=== PATIENT | female | born 1970 | race Caucasian/White ===

== ENCOUNTER → 2020-04-09 | Outpatient (CLI) | payer OTHER ==
[~2020-04-09] MED LIST: ARIP30TA4 PO; CLON-364 PO; VENL75CA6 PO; ZOLP10TA PO; [UNRECOGNIZED DRUG - OTHER] PO
[2020-04-09 16:31] LABS: INTERNATIONAL NORMALIZED RATIO 0.94 (0.93-1.1)
[2020-04-09 16:32] LABS: BASOPHILS # (AUTO) 0.03 x10^3/uL (0-0.1); BASOPHILS % (AUTO) 0 % (0-1); EOSINOPHILS # (AUTO) 0.01 x10^3/uL (0-0.4); EOSINOPHILS % (AUTO) 0 % (1-7); LYMPHOCYTES % (AUTO) 34 % (22-44); MD NO; MEAN CORPUSCULAR HEMOGLOBIN 31.6 pg (27.0-34.8); MEAN PLATELET VOLUME 9.3 fL (7.4-10.4); MONOCYTES # (AUTO) 0.47 x10^3/uL (0.2-0.8); MONOCYTES % (AUTO) 6 % (2-9); NEUTROPHILS # (AUTO) 4.84 x10^3/uL (1.8-6.8); NEUTROPHILS % (AUTO) 60 % (42-75); PLATELET COUNT 200 x10^3/uL (130-400); RED BLOOD COUNT 4.62 x10^6/uL (3.82-5.3); RED CELL DISTRIBUTION WIDTH 12.4 % (9.6-15.2)
[2020-04-09 16:33] LABS: ANION GAP 5 mmol/L (5-15); CALCIUM 9.4 mg/dL (8.5-10.1); CHLORIDE 105 mmol/L (98-107); CREATININE 0.92 mg/dL (0.55-1.02)
== END | disposition home or self-care (01) ==
LOC: STAR 15:09
PROVIDERS: ATTEND Neurological Surgery
DX: Z01.818 Encounter for other preprocedural examination (principal); M51.36 Other intervertebral disc degeneration, lumbar region
CPT/HCPCS: 36415; 71046; 80048; 85025; 85610; 85730; 93005

== ENCOUNTER 2020-04-15 08:29 | Inpatient (IN) | payer OTHER ==
[~2020-04-15] VITALS: Ht 167.6 cm; Wt 82.9 kg
[~2020-04-15 08:29] MED LIST changes: +BACITRACIN 50,000 UNIT ONE; +BUPIVACAINE/PF-EPI 0.5% 1:200K ONE; +THROMBIN 5,000 UNIT VIAL TP ONE
[2020-04-15] MEDS ORDERED: CHLORHEXIDINE 15 ML UDC ONE (10:57)
[2020-04-15] MEDS ORDERED: GABAPENTIN 300 MG CAPSULE ONE (10:58)
[2020-04-15] MEDS ORDERED: SCOPOLAMINE 1MG PATCH TD ONE (10:58)
[2020-04-15] MEDS ORDERED: GABAPENTIN 300 MG CAPSULE PO ONE (11:00)
[2020-04-15] MEDS ORDERED: CHLORHEXIDINE 15 ML UDC MM ONE (11:00)
[2020-04-15] MEDS ORDERED: SCOPOLAMINE 1MG PATCH TD SCH (11:00)
[2020-04-15] MEDS ORDERED: LACTATED RINGERS 1,000 ML IV SCH (11:01)
[2020-04-15] MEDS ORDERED: FENTANYL PF 100 MCG/2ML ONE ×5 (13:20→16:40)
[2020-04-15] MEDS ORDERED: MIDAZOLAM 1 MG/ML, 2ML ONE (13:20)
[2020-04-15] MEDS ORDERED: ROCURONIUM 10MG/ML,5ML ONE (13:22)
[2020-04-15] MEDS ORDERED: PROPOFOL 10 MG/ML, 20ML ONE (13:22)
[2020-04-15] MEDS ORDERED: DEXAMETHASONE 4 MG/ML, 1ML ONE (13:22)
[2020-04-15] MEDS ORDERED: CEFAZOLIN 1,000 MG ONE (13:22)
[2020-04-15] MEDS ORDERED: NEOSTIGMINE 1 MG/ML, 10ML ONE (13:22)
[2020-04-15] MEDS ORDERED: ONDANSETRON 2MG/ML, 2ML ONE (13:22)
[2020-04-15] MEDS ORDERED: GLYCOPYRROLATE 0.2MG/1ML, 5ML ONE (13:22)
[2020-04-15] MEDS ORDERED: PROPOFOL 50 ML ONE (13:22)
[2020-04-15] MEDS ORDERED: FENTANYL PF 100 MCG/2ML IVPush ONE (14:00)
[2020-04-15] MEDS ORDERED: HALOPERIDOL 5 MG/ML IV PRN (15:30)
[2020-04-15] MEDS ORDERED: hydrALAzine 20 MG/ML, 1ML IV PRN (15:30)
[2020-04-15] MEDS ORDERED: MEPERIDINE/PF 25MG/0.5ML IVPush PRN (15:30)
[2020-04-15] MEDS ORDERED: LABETALOL 5MG/ML, 20ML IV PRN ×2 (15:30→18:30)
[2020-04-15] MEDS ORDERED: morphine SULFATE 10 MG/ML, 1ML IVPush PRN (15:30)
[2020-04-15] MEDS ORDERED: METHOCARBAMOL 1,000 MG in DEXTROSE 5% 100 ML IV PRN (15:30)
[2020-04-15] MEDS ORDERED: DIAZEPAM 5 MG/ML, 2ML IVPush PRN (15:30)
[2020-04-15] MEDS ORDERED: PROMETHAZINE 25 MG/ML, 1ML IVPush PRN (15:30)
[2020-04-15] MEDS ORDERED: OXYcodone 5 MG/5 ML ORAL.SOL UDC ONE ×2 (16:40→17:10)
[2020-04-15] MEDS: FENTANYL PF 100 MCG/2ML IV PRN ×4 (16:43→17:05)
[2020-04-15] MEDS: OXYcodone 5 MG/5 ML ORAL.SOL UDC PO PRN ×2 (16:44→17:10)
[2020-04-15] MEDS ORDERED: HYDROmorphone 1 MG/ML, 1ML INJ ONE (17:22)
[2020-04-15] MEDS: HYDROmorphone 1 MG/ML, 1ML INJ IVPush PRN ×3 (17:24→17:35)
[2020-04-15 18:15] VITALS: BP 120/81
[2020-04-15] MEDS ORDERED: BISACODYL 10 MG SUPP PR PRN (18:30)
[2020-04-15] MEDS ORDERED: DIPHENHYDRAMINE 25 MG CAPSULE PO PRN (18:30)
[2020-04-15] MEDS ORDERED: MAGNESIUM HYDROXIDE 8%, 30ML UDC PO PRN (18:30)
[2020-04-15] MEDS ORDERED: DIPHENHYDRAMINE 50 MG/ML, 1ML IVPush PRN (18:30)
[2020-04-15] MEDS ORDERED: PROMETHAZINE 25 MG/ML, 1ML IM PRN (18:30)
[2020-04-15] MEDS ORDERED: DIPHENHYDRAMINE 50 MG/ML, 1ML IM PRN (18:30)
[2020-04-15] MEDS ORDERED: ONDANSETRON 2MG/ML, 2ML IV PRN (18:30)
[2020-04-15] MEDS: HYDROmorphone 2 MG/ML, 1ML IVPush PRN ×2 (20:01→23:16)
[2020-04-15] MEDS: OXYcodone IR 5MG TABLET PO PRN (21:41)
[2020-04-15] MEDS: CEFAZOLIN PMX 1GM/50ML 50 ML IVPB SCH (22:59)
[2020-04-15] MEDS: NS + 20MEQ KCL 1,000 ML IV SCH (23:00)
[2020-04-16 00:07] VITALS: BP 101/65
[2020-04-16] MEDS: METHOCARBAMOL 750 MG in DEXTROSE 5% 100 ML IV SCH ×2 (00:52→08:12)
[2020-04-16 03:47] VITALS: BP 99/67
[2020-04-16] MEDS: OXYcodone IR 5MG TABLET PO PRN ×3 (03:53→12:03)
[2020-04-16] MEDS: HYDROmorphone 2 MG/ML, 1ML IVPush PRN (05:10)
[2020-04-16] MEDS: CEFAZOLIN PMX 1GM/50ML 50 ML IVPB SCH (06:25)
[2020-04-16 06:47] VITALS: BP 95/66
[2020-04-16] MEDS: NS + 20MEQ KCL 1,000 ML IV SCH (08:10)
[2020-04-16] MEDS ORDERED: SENNA/DOCUSATE TABLET PO SCH (09:00)
[2020-04-16] MEDS ORDERED: KETOROLAC 30 MG/1 ML IVPush ONE (11:00)
[2020-04-16] MEDS ORDERED: OXYC-307 PO (11:43)
[2020-04-16] MEDS ORDERED: METH750T87 PO (11:44)
[2020-04-16 11:51] VITALS: BP 101/70
[2020-04-18] MEDS ORDERED: METHOCARBAMOL 750 MG TABLET PO SCH (01:30)
== END 2020-04-16 12:39 | disposition home or self-care (01) | DRG 42 ==
LOC: ORIP 09:52 → 3N 17:54 → DCLOUNGE 04-16 12:20
PROVIDERS: ADMIT Neurological Surgery; ATTEND Neurological Surgery
PROC: 01NB0ZZ Release Lumbar Nerve, Open Approach (ICD-10-PCS; 2020-04-15)
PROC: 01NR0ZZ Release Sacral Nerve, Open Approach (ICD-10-PCS; principal; 2020-04-15 12:00)
DX: M54.18 Radiculopathy, sacral and sacrococcygeal region (principal)
CPT/HCPCS: 72100; 95938; 95941; G0378; J0690; J1100; J1170; J1885; J2250; J2405; J2704; J2710; J3010; J3480; J2800; J7120; U0001-CS